=== PATIENT | female | born 1955 | race Caucasian/White ===

== ENCOUNTER 2019-09-06 22:51 | Observation (INO) ==
[2019-09-06 23:27] LABS: Basophils # 0.1 K/mcL (0.0-0.2); Basophils % 0.4 %; Eosinophils % 0.3 %; Hemoglobin 10.3 g/dL (11.5-15.4); Immature Granulocytes % 0.5 % (0-4); Lymphocytes # 1.2 K/mcL (0.6-4.6); Lymphocytes % 9.7 %; Mean Corpuscular HGB Conc 30.3 g/dL (31.6-35.5); Mean Corpuscular Hemoglobin 27.5 pg (28.0-33.3); Mean Corpuscular Volume 90.7 fL (83.0-100.0); Mean Platelet Volume 9.2 fL (9.4-12.4); Monocytes # 0.7 K/mcL (0.0-1.3); Monocytes % 5.9 %; Neutrophils # 10.3 K/mcL (1.6-8.9); Platelet Count 379 K/mcL (140-400); Red Blood Count 3.75 M/mcL (3.82-4.97); Red Cell Distribution Width 14.4 % (11.5-14.5); Segmented Neutrophils % 83.2 %; White Blood Count 12.4 K/mcL (4.3-11.1)
[2019-09-06 23:44] LABS: BUN/Creatinine Ratio 30 (6-26); Blood Urea Nitrogen 42 mg/dL (8-23); Calcium 9.2 mg/dL (8.6-10.3); Carbon Dioxide 23 mEq/L (23-29); Chloride 102 mEq/L (98-107); Creatine Kinase 84 Units/L (30-223); Glucose 145 mg/dL (70-105); Magnesium 2.1 mg/dL (1.6-2.6); Osmolality,Calculated 297 (280-300); Potassium 3.9 mEq/L (3.5-5.1); Sodium 137 mEq/L (136-145); eGFR For African Americans 45 (> 60); eGFR For Non-African Americans 37 (> 60)
[2019-09-06 23:52] LABS: Troponin I < 0.03 ng/mL (< 0.04)
[2019-09-06] MEDS ORDERED: 0.9 % Sodium Chloride 1,000 ML IVC ONE (23:56)
[2019-09-07 02:28] LABS: Bilirubin,Urine Negative (Negative); Blood,Urine Negative (Negative); Clarity,Urine Clear (Clear); Color,Urine Yellow (Yellow); Glucose,Urine (UA) Normal (Normal); Ketones,Urine Negative (Negative); Leukocyte Esterase,Urine Negative (Negative); Nitrite,Urine Negative (Negative); PH,Urine 5.5 pH Units (5.0-8.0); Protein,Urine Negative (Neg-Trace); Specific Gravity,Urine 1.013 (1.010-1.025); Urobilinogen,Urine Normal (Normal)
[2019-09-07] MEDS ORDERED: Naloxone 0.4 MG/ML INJ IVP PRN (02:38)
[2019-09-07 03:44] LABS: Basophils # 0.1 K/mcL (0.0-0.2); Basophils % 0.6 %; Eosinophils # 0.1 K/mcL (0.0-0.6); Eosinophils % 1.1 %; Hematocrit 30.8 % (35.3-44.9); Immature Granulocytes % 0.4 % (0-4); Immature Reticulocyte % 24.2 % (11.0-38.0); Lymphocytes # 1.8 K/mcL (0.6-4.6); Lymphocytes % 17.2 %; Mean Corpuscular HGB Conc 32.5 g/dL (31.6-35.5); Mean Corpuscular Volume 86.3 fL (83.0-100.0); Mean Platelet Volume 8.8 fL (9.4-12.4); Monocytes % 9.1 %; Neutrophils # 7.6 K/mcL (1.6-8.9); Platelet Count 401 K/mcL (140-400); Red Blood Count 3.57 M/mcL (3.82-4.97); Red Cell Distribution Width 14.4 % (11.5-14.5); Retculocyte # 0.08 M/mcL (0.05-0.10); Reticulocyte % 2.2 % (1.6-2.8); Segmented Neutrophils % 71.6 %; White Blood Count 10.6 K/mcL (4.3-11.1)
[2019-09-07 03:47] LABS: INR 1.2; Prothrombin Time 13.2 Seconds (9.4-12.1)
[2019-09-07 04:06] LABS: Albumin 3.4 g/dL (3.5-5.7); Albumin/Globulin Ratio 0.9 (1.1-2.2); Bilirubin,Total 0.3 mg/dL (0.3-1.0); Calcium 9.4 mg/dL (8.6-10.3); Chol/HDL Ratio 2.8 (0-4.9); Globulin 3.6 g/dL (2.4-3.5); Magnesium 1.9 mg/dL (1.6-2.6); Phosphorous 2.4 mg/dL (2.7-4.5); Potassium 3.7 mEq/L (3.5-5.1)
[2019-09-07 04:20] LABS: Thyroid Stimulating Hormone 1.011 mcIU/mL (0.340-5.600)
[2019-09-07 04:29] LABS: Folate 16.5 ng/mL (3.0-16.0)
[2019-09-07] MEDS ORDERED: Insulin NPH/REG 70/30 100 UNIT/ML (x5UNIT) SQ SCH ×2 (07:30→18:00)
[2019-09-07] MEDS: Gabapentin 300 MG CAPSULE PO SCH ×3 (08:39→21:48)
[2019-09-07] MEDS: hydrALAZINE 25 MG TABLET PO SCH ×2 (08:39→21:48)
[2019-09-07] MEDS: Aspirin Enteric Coated 81 MG Tablet PO SCH (08:39)
[2019-09-07] MEDS: Acetaminophen 325 MG TABLET PO SCH (08:39)
[2019-09-07] MEDS: *HR* Heparin 5,000 UNIT/ML VIAL SQ SCH ×2 (14:34→21:48)
[2019-09-08 04:54] LABS: Basophils # 0.1 K/mcL (0.0-0.2); Basophils % 0.9 %; Eosinophils # 0.3 K/mcL (0.0-0.6); Eosinophils % 4.3 %; Hemoglobin 9.1 g/dL (11.5-15.4); Immature Granulocytes % 0.4 % (0-4); Lymphocytes # 2.3 K/mcL (0.6-4.6); Lymphocytes % 29.6 %; Mean Corpuscular HGB Conc 30.3 g/dL (31.6-35.5); Mean Corpuscular Hemoglobin 27.2 pg (28.0-33.3); Mean Corpuscular Volume 89.8 fL (83.0-100.0); Mean Platelet Volume 8.8 fL (9.4-12.4); Monocytes # 0.9 K/mcL (0.0-1.3); Monocytes % 11.7 %; Neutrophils # 4.2 K/mcL (1.6-8.9); Platelet Count 353 K/mcL (140-400); Red Blood Count 3.34 M/mcL (3.82-4.97); Red Cell Distribution Width 14.6 % (11.5-14.5); Segmented Neutrophils % 53.1 %; White Blood Count 7.9 K/mcL (4.3-11.1)
[2019-09-08 05:15] LABS: BUN/Creatinine Ratio 26 (6-26); Blood Urea Nitrogen 28 mg/dL (8-23); Calcium 9.1 mg/dL (8.6-10.3); Carbon Dioxide 29 mEq/L (23-29); Chloride 102 mEq/L (98-107); Glucose 157 mg/dL (70-105); Osmolality,Calculated 299 (280-300); Potassium 4.2 mEq/L (3.5-5.1); Sodium 140 mEq/L (136-145); eGFR For African Americans > 60 (> 60); eGFR For Non-African Americans 52 (> 60)
[2019-09-08] MEDS: *HR* Heparin 5,000 UNIT/ML VIAL SQ SCH ×3 (05:53→21:29)
[2019-09-08] MEDS ORDERED: Insulin NPH/REG 70/30 100 UNIT/ML (x5UNIT) SQ SCH ×2 (09:00→18:00)
[2019-09-08] MEDS: Gabapentin 300 MG CAPSULE PO SCH ×3 (09:41→21:25)
[2019-09-08] MEDS: hydrALAZINE 25 MG TABLET PO SCH ×2 (09:42→21:25)
[2019-09-08] MEDS: cephALEXin 500 MG CAPSULE PO SCH ×3 (09:42→21:25)
[2019-09-08] MEDS: Acetaminophen 325 MG TABLET PO SCH (09:43)
[2019-09-08] MEDS: Aspirin Enteric Coated 81 MG Tablet PO SCH (09:43)
[2019-09-08 10:52] LABS: Estimated Average Glucose 212 mg/dl
[2019-09-08] MEDS ORDERED: Dextrose Gel 15 GM/37.5 ML TUBE PO PRN ×2 (17:46)
[2019-09-08] MEDS ORDERED: D5% in Water 1,000 ML IVC PRN (17:46)
[2019-09-08] MEDS ORDERED: *HR* Dextrose 50 % in Water (Syg) 50 ML SYRINGE IVP PRN (17:46)
[2019-09-08] MEDS ORDERED: HYDRALAZINE HCL 50 MG PO SCH (21:00)
[2019-09-08] MEDS: Insulin DETEMIR 100 UNIT/ML X5UNITS SQ SCH (21:27)
[2019-09-08] MEDS: Acetaminophen 325 MG TABLET PO PRN (22:30)
[2019-09-09] MEDS: *HR* Heparin 5,000 UNIT/ML VIAL SQ SCH ×3 (05:51→21:03)
[2019-09-09] MEDS: Acetaminophen 325 MG TABLET PO PRN ×3 (06:07→15:51)
[2019-09-09 07:03] LABS: Basophils # 0.1 K/mcL (0.0-0.2); Basophils % 0.7 %; Eosinophils # 0.4 K/mcL (0.0-0.6); Eosinophils % 4.1 %; Hematocrit 29.7 % (35.3-44.9); Hemoglobin 9.3 g/dL (11.5-15.4); Immature Granulocytes % 0.4 % (0-4); Lymphocytes # 2.4 K/mcL (0.6-4.6); Mean Corpuscular HGB Conc 31.3 g/dL (31.6-35.5); Mean Corpuscular Hemoglobin 27.8 pg (28.0-33.3); Mean Corpuscular Volume 88.9 fL (83.0-100.0); Mean Platelet Volume 8.7 fL (9.4-12.4); Monocytes # 1.1 K/mcL (0.0-1.3); Monocytes % 11.3 %; Platelet Count 315 K/mcL (140-400); Red Blood Count 3.34 M/mcL (3.82-4.97); Red Cell Distribution Width 14.5 % (11.5-14.5); Segmented Neutrophils % 59.5 %; White Blood Count 10.1 K/mcL (4.3-11.1)
[2019-09-09 07:33] LABS: BUN/Creatinine Ratio 25 (6-26); Blood Urea Nitrogen 26 mg/dL (8-23); Calcium 9.1 mg/dL (8.6-10.3); Carbon Dioxide 26 mEq/L (23-29); Chloride 104 mEq/L (98-107); Glucose 129 mg/dL (70-105); Osmolality,Calculated 298 (280-300); Potassium 4.1 mEq/L (3.5-5.1); Sodium 141 mEq/L (136-145); eGFR For African Americans > 60 (> 60); eGFR For Non-African Americans 53 (> 60)
[2019-09-09] MEDS: Insulin LISPRO 300 UNITS/3 ML VIAL SQ SCH ×6 (07:55→18:08)
[2019-09-09] MEDS: Ascorbic Acid 500 MG TABLET PO SCH (08:51)
[2019-09-09] MEDS: hydrALAZINE 25 MG TABLET PO SCH ×2 (08:51→21:03)
[2019-09-09] MEDS: Cholecalciferol (D-3) 1,000 UNIT (25MCG) TABLET PO SCH (08:52)
[2019-09-09] MEDS: Aspirin Enteric Coated 81 MG Tablet PO SCH (08:52)
[2019-09-09] MEDS: cephALEXin 500 MG CAPSULE PO SCH ×3 (08:52→21:03)
[2019-09-09] MEDS: Gabapentin 300 MG CAPSULE PO SCH ×3 (08:52→21:03)
[2019-09-09] MEDS: Insulin DETEMIR 100 UNIT/ML X5UNITS SQ SCH (21:03)
[2019-09-10] MEDS: traMADol 50 MG TABLET PO PRN ×2 (04:10→13:59)
[2019-09-10 04:32] LABS: Basophils # 0.1 K/mcL (0.0-0.2); Basophils % 0.6 %; Eosinophils # 0.5 K/mcL (0.0-0.6); Eosinophils % 4.8 %; Hemoglobin 9.6 g/dL (11.5-15.4); Immature Granulocytes % 0.4 % (0-4); Lymphocytes # 2.3 K/mcL (0.6-4.6); Lymphocytes % 23.2 %; Mean Corpuscular Hemoglobin 27.7 pg (28.0-33.3); Mean Corpuscular Volume 86.5 fL (83.0-100.0); Mean Platelet Volume 9.3 fL (9.4-12.4); Monocytes # 0.9 K/mcL (0.0-1.3); Monocytes % 9.3 %; Platelet Count 335 K/mcL (140-400); Red Blood Count 3.47 M/mcL (3.82-4.97); Red Cell Distribution Width 14.6 % (11.5-14.5); Segmented Neutrophils % 61.7 %; White Blood Count 9.7 K/mcL (4.3-11.1)
[2019-09-10 04:51] LABS: BUN/Creatinine Ratio 25 (6-26); Blood Urea Nitrogen 25 mg/dL (8-23); Calcium 9.1 mg/dL (8.6-10.3); Carbon Dioxide 25 mEq/L (23-29); Chloride 103 mEq/L (98-107); Glucose 158 mg/dL (70-105); Osmolality,Calculated 292 (280-300); Potassium 4.2 mEq/L (3.5-5.1); Sodium 137 mEq/L (136-145); eGFR For African Americans > 60 (> 60); eGFR For Non-African Americans 56 (> 60)
[2019-09-10] MEDS: *HR* Heparin 5,000 UNIT/ML VIAL SQ SCH (05:57)
[2019-09-10] MEDS ORDERED: Insulin DETEMIR 100 UNIT/ML X5UNITS SQ SCH (09:00)
[2019-09-10] MEDS: Cholecalciferol (D-3) 1,000 UNIT (25MCG) TABLET PO SCH (09:02)
[2019-09-10] MEDS: Gabapentin 300 MG CAPSULE PO SCH (09:02)
[2019-09-10] MEDS: Ascorbic Acid 500 MG TABLET PO SCH (09:02)
[2019-09-10] MEDS: Aspirin Enteric Coated 81 MG Tablet PO SCH (09:02)
[2019-09-10] MEDS: cephALEXin 500 MG CAPSULE PO SCH (09:02)
[2019-09-10] MEDS: Insulin LISPRO 300 UNITS/3 ML VIAL SQ SCH ×4 (09:03→12:09)
[2019-09-10] MEDS: hydrALAZINE 25 MG TABLET PO SCH (09:03)
[2019-09-10] MEDS ORDERED: levoFLOXacin 750 MG TABLET PO ONE (09:26)
[2019-09-10 16:02] VITALS: BP 122/70
== END 2019-09-10 18:16 ==
LOC: EMEROOARM 22:51 → 3BNU 22:51 → SUATTDRO 09-07 01:06
PROVIDERS: ADMIT Internal Medicine; ATTEND Student in an Organized Health Care Education/Training Program